=== PATIENT | female | born 1965 | race Hispanic/Latino ===

== ENCOUNTER 2017-11-30 23:46 | Emergency (ER) | payer BC ==
[~2017-11-30] VITALS: Ht 165.1 cm; Wt 99.3 kg
[~2017-11-30 23:46] MED LIST: GABAPENTIN300 MG PO; LOVAZA1 GM PO; MOBIC15 MG PO; PRAVASTATIN SOD20 MG PO; SINGULAIR10 MG PO; TRICOR48 MG PO; VENLAFAXINE HCL75 MG PO
[2017-12-01] MEDS ORDERED: ONDANSETRON HCL 4 MG ORAL DISINTEGRATING TAB PO ONE (01:15)
[2017-12-01] MEDS ORDERED: HYDROCODONE/APAP 5MG-325MG TAB PO ONE (01:45)
== END 2017-12-01 03:45 | disposition home or self-care (01) ==
LOC: ER 23:46
DX: H92.01 Otalgia, right ear (principal)
CPT/HCPCS: 99284

== ENCOUNTER 2018-02-19 20:10 | Emergency (ER) | payer BC ==
[~2018-02-19] VITALS: Ht 165.1 cm; Wt 99.3 kg
--- OUTSIDE RECORDS SUMMARY | 2018-02-19 20:13 | XMS REPORT | Clinical Summary ---
Author Author [facility] Address Unknown Phone Unavailable Care Team Providers Care Puppet Developer Name Role Phone Neva Arechiga MD PCP Allergies Comments Active Allergy Reactions Severity Noted Date Rifampin Hives 06/19/2013 Acetaminophen-Codeine Itching 06/19/2013 Medications End Date Status Medication Sig Dispensed Refills Start Date Active montelukast (SINGULAIR) Take 10 mg by 0 10 mg tablet mouth nightly. Active GABAPENTIN (NEURONTIN Take by mouth 0 ORAL) daily. Active albuterol HFA (VENTOLIN Inhale 1 puff 0 HFA) 90 mcg/actuation by mouth via inhaler inhaler every 6 (six) hours as needed for Wheezing (1-2 puffs). Active cholecalciferol (VITAMIN Take 1,000 0 D3) 1,000 unit tablet Units by mouth daily. Active cyclobenzaprine Take 10 mg by 0 (FLEXERIL) 10 MG tablet mouth 3 (three) times daily as needed for Muscle spasms. Active fluticasone-salmeterol Inhale 1 puff 0 (ADVAIR) 250-50 mcg/dose by mouth via diskus inhaler inhaler every 12 (twelve) hours. Active minocycline Take 100 mg 0 (MINOCIN,DYNACIN) 100 MG by mouth 2 capsule (two) times daily. Active mupirocin (BACTROBAN) 2 % by Nasal 0 nasal ointment route 2 (two) times daily Use one-half of tube in each nostril twice daily for five (5) days. After application, press sides of nose together and gently massage. . Active pravastatin (PRAVACHOL) Take 20 mg by 0 20 MG tablet mouth daily. Active SUMAtriptan (IMITREX) 50 Take 50 mg by 0 MG tablet mouth once as needed for Headaches. Active venlafaxine (EFFEXOR-XR) Take 75 mg by 0 75 MG 24 hr capsule mouth daily. Active valACYclovir (VALTREX) Take 500 mg 0 500 MG tablet by mouth. Active Problems Not on file Social History Date Tobacco Use Types Packs/Day Years Used Never Smoker Alcohol Use Drinks/Week oz/Week Comments Yes social Sex Assigned at Date Recorded Not on file Industry Job Start Date Occupation Not on file Not on file Not on file Travel End Travel History Travel Start No recent travel history available. Last Filed Vital Signs Not on file Plan of Treatment Not on file Results Not on fileafter 02/18/2017 Insurance Payer Benefit Subscriber ID Type Phone Address Plan / Group [facility] H[facility]/POS CARE POS [employer] CHO[employer] Zeenat costello (Home) [place] [address]
[2018-02-19] MEDS ORDERED: SODIUM CHLORIDE 0.9% 1000ML 1,000 ML IV STA (20:35)
[2018-02-19] MEDS ORDERED: KETOROLAC TROMETHAMINE 30 MG/ML VIAL IV NR (20:35)
[2018-02-19] MEDS ORDERED: ONDANSETRON HCL INJ 2 MG/ML VIAL IV NR (20:35)
[2018-02-19 20:48] LABS: BILIRUBIN,URINE NEGATIVE (NEGATIVE); CLARITY,URINE SL CLOUDY (CLEAR); COLOR,URINE STRAW (YELLOW); KETONES,URINE NEGATIVE (NEGATIVE); LEUKOCYTE ESTERASE ,URINE TRACE (NEGATIVE); NITRITE,URINE NEGATIVE (NEGATIVE); PROTEIN,URINE DIPSTICK 1+ (NEGATIVE); URINE UROBILINOGEN 0.2 mg/dL (0.2 - 1)
[2018-02-19] MEDS ORDERED: ONDANSETRON HCL 4 MG ORAL DISINTEGRATING TAB ONE (20:51)
[2018-02-19] MEDS ORDERED: KETOROLAC TROMETHAMINE 10 MG TAB ONE (20:51)
[2018-02-19] MEDS ORDERED: ONDANSETRON HCL 4 MG ORAL DISINTEGRATING TAB PO NR (21:00)
[2018-02-19] MEDS ORDERED: KETOROLAC TROMETHAMINE 10 MG TAB PO PRN (21:00)
[2018-02-19 21:01] LABS: AMORPHOUS SEDIMENT,URINE MODERATE (FEW); BACTERIA,URINE MODERATE /HPF; EPITHELIAL CELLS,URINE FEW /LPF; RBC,URINE 21-50 /HPF (0-5)
[2018-02-19 21:15] VITALS: BP 132/79
[2018-02-19] MEDS ORDERED: PYRIDIUM100 MG PO (21:23)
[2018-02-19] MEDS ORDERED: KEFLEX500 MG PO (21:23)
== END 2018-02-19 21:46 | disposition home or self-care (01) ==
LOC: ER 20:10
DX: R10.9 Unspecified abdominal pain (principal); M54.5 Low back pain; N30.91 Cystitis, unspecified with hematuria; F17.210 Nicotine dependence, cigarettes, uncomplicated
CPT/HCPCS: 81001; 87086; 99282; Q0162

== ENCOUNTER 2018-03-09 02:13 | Inpatient (IN) | payer BC, OTHER ==
[~2018-03-09] VITALS: Ht 165.1 cm; Wt 163.3 kg
[2018-03-09] VITALS (7 sets, daily range): BP systolic 91–114; BP diastolic 53–75
[~2018-03-09 02:13] MED LIST changes: +KEFLEX500 MG PO; +PYRIDIUM100 MG PO
--- OUTSIDE RECORDS SUMMARY | 2018-03-09 02:16 | XMS REPORT | Clinical Summary ---
Author Author [facility] Address Unknown Phone Unavailable Care Team Providers Care Mechanical Insulator Name Role Phone Neva Arechiga MD PCP [...] Not on file Results Not on fileafter 03/08/2017 Insurance Payer Benefit Subscriber ID Type Phone Address Plan / Group [facility] HMO/POS CARE POS [employer] Zeenat costello (Home) [place] [address]
[2018-03-09 03:10] LABS: BASOPHILS # (AUTO) 0.1 (0.0-0.1); BASOPHILS % 1.1 % (0.0-1.0); EOSINOPHILS # (AUTO) 0.3 (0.0-0.4); EOSINOPHILS % 2.4 % (0.0-6.0); HEMATOCRIT 48.4 % (34.2-44.1); HEMOGLOBIN 16.2 g/dL (12.0-16.0); LYMPHOCYTES # (AUTO) 4.4 (1.0-3.2); LYMPHOCYTES % 36.9 % (18.0-39.1); MEAN CORPUSCULAR HEMOGLOBIN 31.6 pg (28-32); MEAN CORPUSCULAR HGB CONC 33.5 g/dL (31-35); MEAN CORPUSCULAR VOLUME 94.3 fL (81-99); MONOCYTES # (AUTO) 1.1 (0.2-0.8); MONOCYTES % 9.5 % (4.4-11.3); NEUTROPHILS # (AUTO) 5.9 (2.1-6.9); NEUTROPHILS % 49.7 % (38.7-80.0); PLATELET COUNT 405 x10e3/uL (140-360); RED BLOOD COUNT 5.13 x10e6/uL (3.6-5.1)
[2018-03-09 03:22] LABS: MAGNESIUM 2.3 MG/DL (1.3-2.1)
[2018-03-09 03:23] LABS: ALANINE AMINOTRANSFERASE 44 IU/L (0-55); ALBUMIN 3.9 g/dL (3.5-5.0); ALKALINE PHOSPHATASE 87 IU/L (40-150); ANION GAP 16.9 mmol/L (8-16); BLOOD UREA NITROGEN 17 mg/dL (7-26); BUN/CREATININE RATIO 19 (6-25); CALCIUM 9.6 mg/dL (8.4-10.2); CARBON DIOXIDE 23 mmol/L (22-29); CHLORIDE 105 mmol/L (98-107); EST GLOMERULAR FILTRATION RATE > 60 ML/MIN (60-); GLUCOSE 90 mg/dL (74-118); POTASSIUM 3.9 mmol/L (3.5-5.1); SODIUM 141 mmol/L (136-145)
[2018-03-09 04:07] LABS: CLARITY,URINE CLOUDY (CLEAR); COLOR,URINE YELLOW (YELLOW); LEUKOCYTE ESTERASE ,URINE 2+ (NEGATIVE)
[2018-03-09 04:08] LABS: BILIRUBIN,URINE NEGATIVE (NEGATIVE); KETONES,URINE NEGATIVE (NEGATIVE); NITRITE,URINE NEGATIVE (NEGATIVE); PROTEIN,URINE DIPSTICK 1+ (NEGATIVE); URINE UROBILINOGEN 0.2 mg/dL (0.2 - 1)
[2018-03-09 04:13] LABS: BACTERIA,URINE MODERATE /HPF; EPITHELIAL CELLS,URINE FEW /LPF; MUCUS,URINE MODERATE (RARE); RBC,URINE >50 /HPF (0-5); RENAL EPITHELIAL CELLS,URINE FEW; TRANSITIONAL EPI CELLS,URINE FEW; WBC,URINE (MAN) >50 /HPF (0-5)
[2018-03-09] MEDS ORDERED: ONDANSETRON HCL INJ 2MG/ML 2ML 2 MG/ML VIAL IV STA (04:59)
[2018-03-09] MEDS ORDERED: ACETAMINOPHEN 325 MG TAB PO ONE (05:00)
[2018-03-09] MEDS ORDERED: KETOROLAC TROMETHAMINE 30 MG/ML VIAL IV PRN (05:00)
[2018-03-09] MEDS ORDERED: MEROPENEM 1GRAM 1 GM in SODIUM CHLORIDE 0.9% 100 ML 100 ML IV STA (05:48)
[2018-03-09] MEDS: SODIUM CHLORIDE 0.9% 1000ML 1,000 ML IV SCH ×3 (05:48→14:48)
[2018-03-09] MEDS ORDERED: MEROPENEM 1 GM VIAL ONE (06:03)
--- NOTE | 2018-03-09 06:07 | Diagnostic Imaging Report ---
EXAM: CT Abdomen and Pelvis WITHOUT contrast INDICATION: r/o kidney stone COMPARISON: None. TECHNIQUE: Abdomen and pelvis were scanned utilizing a multidetector helical scanner from the lung base to the pubic symphysis without administration of IV contrast. Absence of intravenous contrast decreases sensitivity for detection of focal lesions and vascular pathology. Coronal and sagittal reformations were obtained. Routine protocol was performed. IV CONTRAST: None ORAL CONTRAST: Water COMPLICATIONS: None RADIATION DOSE: Total DLP: 749.4 mGy*cm Estimated effective dose: (DLP x 0.015 x size factor) mSv Dose modulation, iterative reconstruction, and/or weight based adjustment of the mA/kV was utilized to reduce the radiation dose to as low as reasonably achievable. FINDINGS: LINES and TUBES: None. LOWER THORAX: Unremarkable HEPATOBILIARY: No focal hepatic lesions. No biliary ductal dilation. GALLBLADDER: No radio-opaque stones or sludge. No wall thickening. SPLEEN: No splenomegaly. PANCREAS: No focal masses or ductal dilatation. ADRENALS: No adrenal nodules KIDNEYS/URETERS: Mild right hydroureteronephrosis secondary to a 0.9 x 0.6 x 0.3 cm (SI x AP x TV) stone in the distal right ureter. No left hydronephrosis. No cystic or solid mass lesions. No additional stones. GI TRACT: No abnormal distention, wall thickening, or evidence of bowel obstruction. Appendix is normal. PELVIC ORGANS/BLADDER: No bladder stones. Hysterectomy. LYMPH NODES: No lymphadenopathy. VESSELS: Unremarkable. PERITONEUM / RETROPERITONEUM: No free air or fluid. BONES: Unremarkable. SOFT TISSUES: Unremarkable. IMPRESSION: Obstructing stone in the distal right ureter causing mild right hydroureteronephrosis. Signed by: DR. Jose Horner MD on 03/09/2018 6:03 AM
[2018-03-09] MEDS ORDERED: MEROPENEM 1GM 100 ML IV ONE (06:15)
[2018-03-09] MEDS ORDERED: ONDANSETRON HCL INJ 2MG/ML 2ML 2 MG/ML VIAL IV ONE (06:21)
[2018-03-09] MEDS ORDERED: SODIUM CHLORIDE 0.9% 100 ML ONE (06:25)
[2018-03-09] MEDS ORDERED: ONDANSETRON HCL INJ 2MG/ML 2ML 2 MG/ML VIAL IV PRN (06:45)
[2018-03-09] MEDS ORDERED: HYDROMORPHONE 1MG/1ML INJ IV PRN (06:45)
--- OUTSIDE RECORDS SUMMARY | 2018-03-09 06:55 | XMS REPORT | Clinical Summary ---
Author Author [facility] Address Unknown Phone Unavailable Care Team Providers Care Yarn Washer Name Role Phone Neva Arechiga MD PCP [...] ID Type Phone Address Plan / Group [facility] H[facility]/POS CARE POS [employer] CHO[employer] Zeenat costello (Home) [place] [address]
--- OUTSIDE RECORDS SUMMARY | 2018-03-09 06:55 | XMS REPORT ---
Author Author [facility] Address Unknown Phone Unavailable Care Team Providers Care Gunner Mate Name Role Phone Nikita PLASENCIA Unavailable Unavailable Problems This patient has no known problems. Allergies, Adverse Reactions, Alerts This patient has no known allergies or adverse reactions. Medications This patient has no known medications. Results Test Description Test Time Test Comments Text Results Atomic Results Result Comments CT ABDOMEN/PELVIS WO 2018-03-09 05:52:00 [place] [address] Patient Name: KESHAWN MOTLEY MR #: [id number] : 1965 Age/Sex: 52/F Req #: [id number] Adm Physician: Ordered by: JUSTYN PLASENCIA MD Report #: [id number] Location: ER Room/Bed: Procedure: [id number] CT/CT ABDOMEN/PELVIS WO Exam Date: Exam Time: REPORT STATUS: Signed EXAM: CT Abdomen and Pelvis WITHOUT contrast INDICATION: r/o ki dney stone COMPARISON: None. TECHNIQUE: Abdomen and pelvis were scanned utilizing a multidetector helical scanner from the lung base to the pubic symphysis without administration of IV contrast. Absence of intravenous contrast decreases sensitivity for detection of focal lesions and vascular pathology. Coronal and sagittal reformations were obtained. Routine protocol was performed. IV CONTRAST: None ORAL CONTRAST: Water COMPLICATIONS: None RADIATION DOSE: Total DLP: 749.4 mGy*cm Estimated effective dose: (DLP x 0.015 x size factor) mSv Dose modulation, iterative reconstruction, and/or weight based adjustment of the mA/kV was utilized to reduce the radiation dose to as low as reasonably achievable. FINDINGS: LINES and TUBES: None. LOWER THORAX: Unremarkable HEPATOBILIARY: No focal hepatic lesions. No biliary ductal dilation. GALLBLADDER: No radio-opaque stones or sludge. No wall thickening. SPLEEN: No splenomegaly. PANCREAS: No focal masses or ductal dilatation. ADRENALS: No adrenal nodules KIDNEYS/URETERS: Mild right hydroureteronephrosis secondary to a 0.9 x 0.6 x 0.3 cm (SI x AP x TV) stone in the distal right ureter. No left hydronephrosis. No cystic or solid mass lesions. No additional stones. GI TRACT: No abnormal distention, wall thickening, or evidence of bowel obstruction. Appendix is normal. PELVIC ORGANS/BLADDER: No bladder stones. Hysterectomy. LYMPH NODES: No lymphadenopathy. VESSELS: Unremarkable. PERITONEUM / RETROPERITONEUM: No free air or fluid. BONES: Unremarkable. SOFT TISSUES: Unremarkable. IMPRESSION: Obstructing stone in the distal right ureter causing mild right hydroureteronephrosis. Signed by: DR. Jose Greer MD on 03/09/2018 6:03 AM Dictated By: JOSE GREER MD 2 Transcribed By: MARIIA on 03/09/18602 COPY TO: JUSTYN PLASENCIA MD
[2018-03-09] MEDS ORDERED: HYDROMORPHONE 2MG/ML 2 MG/ML ML IV PRN (07:00)
--- NOTE | 2018-03-09 07:09 | NUR ---
REPORT GIVEN TO LISA FRANCIS DAY SHIFT NURSE.
--- NOTE | 2018-03-09 07:20 | NUR ---
Dr. Raymond at bedside. Orders rec'd.
[2018-03-09] MEDS ORDERED: PROAIR HFA INH8.5 GM IH (10:26)
--- OUTSIDE RECORDS SUMMARY | 2018-03-09 11:28 | XMS REPORT | Clinical Summary ---
Author Author [facility] Address Unknown Phone Unavailable Care Team Providers Care Apple Picking Supervisor Name Role Phone Neva Arechiga MD PCP [...] Phone Address Plan / Group [facility] x[facility] HMO/POS CARE POS [employer] Zeenat costello (Home) [place] [address]
--- NOTE | 2018-03-09 11:31 | NUR ---
Pt to OR holding at this time for procedure in stable condition; NAD observed or voiced.
[2018-03-09] MEDS ORDERED: IOPAMIDOL 610MG/1ML 300 MG/ML VIAL IV ONE (11:48)
[2018-03-09] MEDS ORDERED: LEVOFLOXACIN 500MG/D5W 100ML 100 ML IV ONE (12:02)
[2018-03-09] MEDS ORDERED: DEXAMETHASONE SOD PHOS INJ 4 MG/ML VIAL ONE (12:06)
[2018-03-09] MEDS ORDERED: LIDOCAINE HCL 2% LOCAL INJ 5 ML SDV VIAL INJ ONE (12:06)
[2018-03-09] MEDS ORDERED: PROPOFOL IV EMULSION 10 MG/ML 20 ML VIAL ONE (12:06)
[2018-03-09] MEDS ORDERED: EPHEDRINE SULFATE INJ 50 MG/10 ML SYR ONE (12:06)
[2018-03-09] MEDS ORDERED: ONDANSETRON HCL INJ 2MG/ML 2ML 2 MG/ML VIAL ONE (12:06)
[2018-03-09] MEDS ORDERED: SEVOFLURANE INHAL SOLN 250 ML PEN BTL ONE (12:06)
[2018-03-09] MEDS ORDERED: KETOROLAC TROMETHAMINE 30 MG/ML VIAL ONE (13:31)
--- NOTE | 2018-03-09 13:45 | NUR ---
Received patient from PACU via stretcher. AAOX4 to time, person,place , situation. Respirations even and unlabored. Oriented patient to room. Instructed patient to use call light for assistance. Voiced understanding.
[2018-03-09] MEDS ORDERED: MEROPENEM 1GRAM 1 GM in SODIUM CHLORIDE 0.9% 100 ML 100 ML IV SCH (14:00)
[2018-03-09] MEDS: MEROPENEM 1GM 100 ML IV SCH ×2 (14:00→23:28)
--- OUTSIDE RECORDS SUMMARY | 2018-03-09 14:16 | XMS REPORT | Clinical Summary ---
Author Author [facility] Address Unknown Phone Unavailable Care Team Providers Care Roller Varnisher Name Role Phone Neva Arechiga MD PCP [...] ID Type Phone Address Plan / Group [facility] HMO/POS CARE POS [employer] CHO[employer] Zeenat costello (Home) [place] [address]
--- NOTE | 2018-03-09 14:22 | Operative Report ---
DATE OF PROCEDURE: March 09, 2018 PREOPERATIVE DIAGNOSES 1. Right hydronephrosis. 2. Microscopic hematuria. POSTOPERATIVE DIAGNOSES 1. Right hydronephrosis. 2. Microscopic hematuria. OPERATIONS PERFORMED 1. Cystourethroscopy with left ureteral catheterization and left retrograde pyelogram (a separate procedure for the diagnosis of microscopic hematuria). 2. Cystourethroscopy with the insertion of a right indwelling ureteral stent (entirely separate procedure for the diagnosis of right hydronephrosis). 3. Supervision of fluoroscopy. 4. Interpretation of retrograde pyelography. ANESTHESIA: General. ESTIMATED BLOOD LOSS: Minimal. COMPLICATIONS: None. INDICATIONS FOR PROCEDURE: Mrs. Contreras is a very pleasant 52-year-old female with a urinary tract infection and obstructive and infected stone. She and I had a long discussion regarding the alternatives, risks and benefits including doing nothing, cystoscopy, IVP, stent placement and percutaneous nephrostomy. She voiced understanding of the options, of the alternatives, of the risks and the benefits, and she elected to proceed. PROCEDURE IN DETAIL: After informed consent was obtained, the patient was taken to the operating suite. She was placed supine on the operating table and she underwent general anesthesia by the anesthesia service. She was placed in the dorsal lithotomy position and sterilely prepped and draped in the standard fashion for cystoscopy. A 22.5-Thai cystoscope was inserted per urethra, and a normal urethra was noted. Panendoscopy of the bladder revealed no tumors and no stones. Both ureteral orifices were in their normal anatomical location and position and were seen to efflux clear urine. Bilateral retrograde pyelograms were performed. The left was normal. The right revealed a very large 9 x 6 mm midureteral calculus with proximal hydronephrosis. A ureteral stent was deployed with a coil in the renal pelvis and a coil in the bladder. The patient's bladder was drained, awakened from anesthesia and transported to the recovery room in excellent condition. SUPERVISION OF FLUOROSCOPY AND INTERPRETATION OF RETROGRADE PYELOGRAPHY: I was present throughout the entire procedure, and I supervised the use of fluoroscopy. There was no radiologist present at any time during this procedure. Attention was turned toward the left and right ureteral orifices, which were catheterized with a 5-Thai open-ended catheter. Retrograde pyelogram was performed, revealing delicate ureters, delicate pelvocaliceal systems, a left hydronephrosis and a 9 x 6 mm midureteral calculus on the right. Postoperative views on the right side revealed a stent in adequate position. IMPRESSION 1. Normal left retrograde pyelogram. 2. Right midureteral 9 x 6 mm calculus with hydronephrosis, stent in adequate position. Job#: [id number] EV
--- NOTE | 2018-03-09 14:25 | Consultation ---
DATE OF CONSULTATION: March 09, 2018 UROLOGICAL CONSULTATION REASON FOR CONSULTATION: Kidney stone. HISTORY OF PRESENT ILLNESS: Ms. Contreras is a very pleasant 52-year-old female with a 2-week history of sharp severe right-sided flank pain. She was diagnosed with a urinary tract infection by her primary care doctor and treated with Keflex. She denied fevers. No chills. Currently, has had nausea. Denied vomiting. PAST MEDICAL HISTORY: Notable for hyperlipidemia, hidradenitis suppurativa, urinary tract infections. MEDICATIONS: Please see MAR. ALLERGIES: RIFAMPIN, ACETAMINOPHEN, CODEINE, AND NOW see nurses note. SOCIAL HISTORY: Noncontributory. FAMILY HISTORY: No urological symptoms or malignancies. REVIEW OF SYSTEMS: Noncontributory x 12. PHYSICAL EXAMINATION GENERAL: A well-developed, well-nourished female in no acute distress. VITALS: Temperature 99, pulse 95, respirations 16, weight 219 pounds, height 5 feet 5 inches. HEENT: Sclerae are anicteric. NECK: Supple. BACK: Without costovertebral tenderness. ABDOMEN: Soft. It is nontender. It is nondistended. There is no palpable mass. No palpable hernias. No palpable lymphadenopathy. : No female external genitalia. EXTREMITIES: Without edema. PSYCH: Alert and appropriate. SKIN: Intact. Normal color. PERTINENT LABORATORY DATA: Sodium 141, potassium 3.9, chloride 105, bicarb 23, BUN 17, creatinine 0.9, glucose 90. Hemoglobin 16, hematocrit 48, white blood cell count 4500 and went up to 11,900. Urinalysis with greater then 50 reds and greater then 50 whites. IMPRESSION 1. Right ureteral calculus. 2. Right hydronephrosis. 3. Right renal colic. 4. Pyelonephritis. 5. Urinary tract infection. 6. Microscopic hematuria. PLAN: Patient is on broad-spectrum antibiotics. Will need stenting versus nephrostomy. Thank you for allowing us to participate in the care of this patient. I will be happy to follow along with you. Job#: [id number] RI MTDD
[2018-03-09] MEDS ORDERED: SODIUM CHLORIDE 0.9% 1000ML 1,000 ML ONE (14:40)
[2018-03-09] MEDS: VENLAFAXINE HCL 75 MG TAB PO SCH (17:32)
--- NOTE | 2018-03-09 18:30 | NUR ---
Patient voided. Per patient "I noticed some blood in my urine"
[2018-03-09] MEDS ORDERED: MIDAZOLAM HCL 2 MG/2 ML VIAL ONE (18:36)
[2018-03-09] MEDS ORDERED: FENTANYL CITRATE/PF 100MCG/2 ML INJ ONE (18:36)
[2018-03-09] MEDS: HYDROMORPHONE 2MG/ML 2 MG/ML ML IV PRN (18:50)
--- NOTE | 2018-03-09 19:00 | NUR ---
Report given to oncoming nurse of patient's status. No s/s of acute distress noted.
--- NOTE | 2018-03-09 19:14 | NUR ---
report received and walking rounds complete.
[2018-03-09] MEDS: GABAPENTIN 300 MG CAP PO SCH (22:08)
[2018-03-09] MEDS: PRAVASTATIN 20 MG TAB PO SCH (22:08)
[2018-03-09] MEDS ORDERED: MEROPENEM 500MG/ NS 50ML 100 ML IV SCH (23:30)
[2018-03-10] VITALS (8 sets, daily range): BP systolic 99–120; BP diastolic 53–66
[2018-03-10] MEDS ORDERED: SODIUM CHLORIDE 0.9% 1000ML 1,000 ML ONE ×3 (00:21→23:38)
[2018-03-10] MEDS: SODIUM CHLORIDE 0.9% 1000ML 1,000 ML IV SCH ×5 (00:30→23:41)
[2018-03-10] MEDS: HYDROMORPHONE 2MG/ML 2 MG/ML ML IV PRN ×2 (00:30→05:08)
[2018-03-10 05:50] LABS: BASOPHILS % 0.4 % (0.0-1.0); EOSINOPHILS % 0.2 % (0.0-6.0); HEMATOCRIT 38.2 % (34.2-44.1); LYMPHOCYTES # (AUTO) 2.1 (1.0-3.2); LYMPHOCYTES % 19.2 % (18.0-39.1); MEAN CORPUSCULAR HEMOGLOBIN 31.6 pg (28-32); MEAN CORPUSCULAR HGB CONC 32.5 g/dL (31-35); MEAN CORPUSCULAR VOLUME 97.4 fL (81-99); MONOCYTES # (AUTO) 0.8 (0.2-0.8); MONOCYTES % 6.9 % (4.4-11.3); NEUTROPHILS # (AUTO) 8.1 (2.1-6.9); NEUTROPHILS % 72.8 % (38.7-80.0); PLATELET COUNT 294 x10e3/uL (140-360); RED BLOOD COUNT 3.92 x10e6/uL (3.6-5.1); RED CELL DISTRIBUTION WIDTH 13.1 % (11.7-14.4)
[2018-03-10] MEDS: MEROPENEM 1GM 100 ML IV SCH ×3 (06:05→22:00)
[2018-03-10 06:20] LABS: HEMOGLOBIN 12.4 g/dL (12.0-16.0)
[2018-03-10 06:22] LABS: ANION GAP 11.3 mmol/L (8-16); BLOOD UREA NITROGEN 14 mg/dL (7-26); BUN/CREATININE RATIO 18 (6-25); CALCIUM 8.5 mg/dL (8.4-10.2); CARBON DIOXIDE 25 mmol/L (22-29); CHLORIDE 111 mmol/L (98-107); CREATININE, SERUM 0.77 mg/dL (0.57-1.11); EST GLOMERULAR FILTRATION RATE > 60 ML/MIN (60-); GLUCOSE 112 mg/dL (74-118); POTASSIUM 4.3 mmol/L (3.5-5.1); SODIUM 143 mmol/L (136-145)
--- NOTE | 2018-03-10 06:50 | NUR ---
Handoff report rec'd during walking rounds.
--- NOTE | 2018-03-10 08:20 | NUR ---
Dr. Mcpherson rounding at this time for Dr. Raymond.
[2018-03-10] MEDS ORDERED: MELOXICAM 15 MG PO SCH (09:00)
[2018-03-10] MEDS ORDERED: PRAVASTATIN 20 MG TAB PO SCH (09:00)
--- NOTE | 2018-03-10 09:00 | NUR ---
SOCIAL WORK INITIAL ASSESSMENT Civil Engineering Draftsperson to bedside to discuss plan of care with patient/family. CM/SW role and care transitions discussed. Anticipated discharge plan discussed along with duration of care. CM/SW discussed patients right to make decisions in care. CM/SW work hours given. Patient lives: IN OWN HOUSE WITH FAMILY Admit/Transfer: VIA HOME POA/Emergency contact: IS MARGARITA [phone] AND SON IS SANCHEZ [phone] Current/Previous Home Health: NONE PCP/Follow-up Care: [facility] Current/Previous DME: NONE Other Services: NONE Employment Status: CURRENTLY UNEMPLOYED Areas of Concerns: NONE Referral Needs: NONE Education Needs: NONE IMM/HARRISON given and signed (if applicable): NA Goal for discharge: RETURN HOME INDEPENDENTLY CM/SW left business card at the bedside with contact information. Name and number was also written on the patients whiteboard. Patient verbalized understanding of discussion. CM will follow-up with ongoing discharge and transition of care needs.
[2018-03-10] MEDS: MELOXICAM 7.5 MG TAB PO SCH (09:30)
[2018-03-10] MEDS: GABAPENTIN 300 MG CAP PO SCH ×3 (09:30→20:33)
[2018-03-10] MEDS: FLUCONAZOLE 100 MG TAB PO SCH (09:30)
[2018-03-10] MEDS: VENLAFAXINE HCL 75 MG TAB PO SCH ×2 (09:30→17:19)
--- NOTE | 2018-03-10 10:23 | NUR ---
Rounds with Dr. Evan Hutchinson.
--- NOTE | 2018-03-10 13:20 | NUR ---
Visit made by the Spiritual Care Department Pastoral Visitor, Lorelei Luna. Pt sleeping soundly and no family present. Pastoral Visitor left a card describing availability of production team manager and instructions on how to contact a production team manager. STEPHAN[employer] Power Barker Operator Spiritual Care Department O: [phone] Pager: [phone] ([phone] number calling from)
--- NOTE | 2018-03-10 19:20 | NUR ---
Patient received lying in bed. AAO x 3. Patient had no complaints of pain. No signs of respiratory distress. Bed locked and in lowest position. Bed rails up x 2. Patient instructed to call for assistance when needed. Call light within reach.
--- NOTE | 2018-03-10 20:30 | NUR ---
Pharmacy Dept. notified twice of non-availability of Merrem 1g and NS 1000cc in the Pyxis, even though the medications were listed in the eMAR. Pharmacist assured nurse it would be taken care of.
[2018-03-10] MEDS: PRAVASTATIN 20 MG TAB PO SCH (20:33)
[2018-03-11 04:00] VITALS: BP 121/75
[2018-03-11 05:19] LABS: BASOPHILS # (AUTO) 0.1 (0.0-0.1); BASOPHILS % 1.1 % (0.0-1.0); EOSINOPHILS # (AUTO) 0.2 (0.0-0.4); EOSINOPHILS % 2.5 % (0.0-6.0); HEMATOCRIT 40.8 % (34.2-44.1); HEMOGLOBIN 13.3 g/dL (12.0-16.0); LYMPHOCYTES # (AUTO) 4.5 (1.0-3.2); LYMPHOCYTES % 52.1 % (18.0-39.1); MEAN CORPUSCULAR HEMOGLOBIN 31.6 pg (28-32); MEAN CORPUSCULAR HGB CONC 32.6 g/dL (31-35); MEAN CORPUSCULAR VOLUME 96.9 fL (81-99); MONOCYTES # (AUTO) 0.7 (0.2-0.8); MONOCYTES % 7.6 % (4.4-11.3); NEUTROPHILS # (AUTO) 3.1 (2.1-6.9); NEUTROPHILS % 36.1 % (38.7-80.0); PLATELET COUNT 272 x10e3/uL (140-360); RED BLOOD COUNT 4.21 x10e6/uL (3.6-5.1); RED CELL DISTRIBUTION WIDTH 13.2 % (11.7-14.4)
[2018-03-11 05:51] LABS: ANION GAP 9.8 mmol/L (8-16); BLOOD UREA NITROGEN 11 mg/dL (7-26); BUN/CREATININE RATIO 14 (6-25); CALCIUM 8.4 mg/dL (8.4-10.2); CARBON DIOXIDE 27 mmol/L (22-29); CHLORIDE 108 mmol/L (98-107); CREATININE, SERUM 0.79 mg/dL (0.57-1.11); EST GLOMERULAR FILTRATION RATE > 60 ML/MIN (60-); GLUCOSE 85 mg/dL (74-118); POTASSIUM 3.8 mmol/L (3.5-5.1); SODIUM 141 mmol/L (136-145)
[2018-03-11] MEDS: HYDROMORPHONE 2MG/ML 2 MG/ML ML IV PRN (06:34)
--- NOTE | 2018-03-11 07:09 | NUR ---
Shift report given to oncoming nurse. Patient in stable condition.
[2018-03-11 07:43] VITALS: BP 110/61
[2018-03-11 09:00] VITALS: BP 110/61
[2018-03-11] MEDS: MELOXICAM 7.5 MG TAB PO SCH (10:24)
[2018-03-11] MEDS: GABAPENTIN 300 MG CAP PO SCH ×2 (10:24→15:53)
[2018-03-11] MEDS: VENLAFAXINE HCL 75 MG TAB PO SCH ×2 (10:24→15:53)
[2018-03-11] MEDS: FLUCONAZOLE 100 MG TAB PO SCH (10:25)
[2018-03-11] MEDS: SODIUM CHLORIDE 0.9% 1000ML 1,000 ML IV SCH ×2 (10:34→14:02)
[2018-03-11] MEDS: MEROPENEM 1GM 100 ML IV SCH (10:34)
[2018-03-11 11:31] VITALS: BP 104/61
--- NOTE | 2018-03-11 14:07 | NUR ---
pt resting in bed. MD aware of vs
[2018-03-11 15:36] VITALS: BP 96/53
[2018-03-11] MEDS ORDERED: MEROPENEM 1GM 100 ML IV SCH (18:00)
--- NOTE | 2018-03-11 19:16 | NUR ---
REVIEWED DC INSTRUCTIONS WITH PT, DC WITH RX FOR ABX AND PAIN. PT AND SPOUSE VERBALIZED UNDERSTANDING.
[2018-03-19] MEDS ORDERED: CIPRO PO (08:53)
[2018-03-20] MEDS ORDERED: ULTRAM50 MG PO (07:29)
== END 2018-03-11 19:25 | disposition home or self-care (01) | DRG 661 ==
LOC: ER 02:13 → UNDOADMIN 06:52 → ERHOLD 06:52 → OR 11:25 → PACU V 14:00 → IMCU 14:16
PROC: BT1F1ZZ Fluoroscopy of Left Kidney, Ureter and Bladder using Low Osmolar Contrast (ICD-10-PCS; 2018-03-09)
PROC: 0T768DZ Dilation of Right Ureter with Intraluminal Device, Via Natural or Artificial Opening Endoscopic (ICD-10-PCS; principal; 2018-03-09 07:30)
DX: N13.6 Pyonephrosis (principal); E78.5 Hyperlipidemia, unspecified; L73.2 Hidradenitis suppurativa; K76.0 Fatty (change of) liver, not elsewhere classified; J45.909 Unspecified asthma, uncomplicated; Z88.6 Allergy status to analgesic agent; Z88.5 Allergy status to narcotic agent; Z88.8 Allergy status to other drugs, medicaments and biological substances; R31.29 Other microscopic hematuria; E66.3 Overweight
CPT/HCPCS: 36415; 74176; 74420; 80048; 80053; 81001; 82150; 83690; 83735; 85025; 87086; 96360; 96361; 99284; C2617; J1100; J1885; J1956; J2001; J2185; J2250; J2405; J7030; J7050

== ENCOUNTER → 2018-03-20 | Day surgery (SDC) | payer BC ==
[~2018-03-20] MED LIST changes: +CEFTRIAXONE SOD 1 GM/NS 50 ML 50 ML IV ONE; +CIPRO PO; +DEXAMETHASONE SOD PHOS INJ 4 MG/ML VIAL ONE; +DIPHENHYDRAMINE HCL INJ 50 MG/ML VIAL ONE; +FENTANYL CITRATE/PF 100MCG/2 ML INJ ONE; +IOPAMIDOL 610MG/1ML 300 MG/ML VIAL IV ONE; +LIDOCAINE HCL 2% LOCAL INJ 5 ML SDV VIAL INJ ONE; +MIDAZOLAM HCL 2 MG/2 ML VIAL ONE; +MORPHINE SULFATE INJ 4 MG/ML INJ 1ML ONE; +ONDANSETRON HCL INJ 2MG/ML 2ML 2 MG/ML VIAL ONE; +PROAIR HFA INH8.5 GM IH; +PROPOFOL IV EMULSION 10 MG/ML 20 ML VIAL ONE; +ROCURONIUM BROMIDE 10 MG/ML 5ML VIAL ONE; +SEVOFLURANE INHAL SOLN 250 ML PEN BTL ONE; +ULTRAM50 MG PO
--- OUTSIDE RECORDS SUMMARY | 2018-03-20 06:59 | XMS REPORT | Clinical Summary ---
Author Author [facility] Address Unknown Phone Unavailable Care Team Providers Care Software Application Tester Name Role Phone Neva Arechiga MD PCP [...] Not on file Results Not on fileafter 03/19/2017 Insurance Payer Benefit Subscriber ID Type Phone Address Plan / Group [facility] xxxxxxxxx HMO/POS CARE POS [employer] Zeenat costello (Home) [place] [address]
[2018-03-20 10:15] VITALS: BP 106/73
--- NOTE | 2018-03-21 23:06 | Operative Report ---
DATE OF PROCEDURE: March 21, 2018 PREOPERATIVE DIAGNOSES 1. Indwelling right ureteral stent. 2. Right ureteral calculus. POSTOPERATIVE DIAGNOSES 1. Indwelling right ureteral stent. 2. Right ureteral calculus. PROCEDURES 1. Cystourethroscopy with complicated removal of right indwelling stent (entirely separate procedure complicated secondary to encrustation). 2. Right-sided ureteroscopy with laser lithotripsy (entirely separate procedure for diagnosis of obstructing calculi). 3. Right-sided ureteroscopy with stone extraction (entirely separate procedure for ureteral calculus). 4. Supervision of fluoroscopy. 5. Interpretation of retrograde pyelography. ANESTHESIA: General. ESTIMATED BLOOD LOSS: Minimal. COMPLICATIONS: None. INDICATIONS: Ms. Contreras is a very pleasant 53-year-old female with a previous stent. She and I had a long discussion regarding the alternatives, risks, and benefits including doing nothing, shockwave lithotripsy, ureteroscopy, and percutaneous surgery and open surgery. She voiced understanding of the options and alternatives, the risks and benefits, and she elected to proceed. PROCEDURE IN DETAIL: After informed consent was obtained, the patient was taken to the operative suite. She was placed on the operating table. She underwent general anesthesia by the anesthesia services. She was placed in the dorsal lithotomy position and sterilely prepped and draped for cystoscopy. A 22.5-Mongolian cystoscope was inserted per urethra. A normal urethra was noted. Panendoscopy of the bladder revealed no tumors and no stones. Both ureteral orifices were in their normal anatomic location and position and were seen to efflux clear urine. A stent was seen guidewire was inserted alongside the stent. Ureteroscope was advanced to the level of ascending ureteral calculi after the stent was removed intact. Utilizing 365-micron laser fiber, the stone was obliterated into multiple fragments. Several fragments were basket extracted and passed off the field as specimen. The ureteroscope was advanced to the proximal ureter. Retrograde pyelogram was performed with the ureteroscope no other stones. At this time, prompt drainage from the collecting system under fluoroscopy. A guidewire was removed. The bladder was drained. The patient was awakened from anesthesia and transported to the recovery room in excellent condition with no untoward effects noted. SUPERVISION OF FLUOROSCOPY, INTERPRETATION OF RETROGRADE PYELOGRAPHY: I was present throughout the entire procedure and I supervised the use of fluoroscopy as there was no radiologist present at any time of this procedure. I supervised both ureteroscopic portion as well as the stent removal portion. Retrograde pyelogram was performed through ureteroscope revealing a dilated collecting system and interim removal of ureteral calculi and stent. Job#: [id number] RTY
== END | disposition home or self-care (01) ==
LOC: OR 06:58
PROVIDERS: ATTEND Urology
DX: N20.1 Calculus of ureter (principal); Z46.6 Encounter for fitting and adjustment of urinary device; N39.0 Urinary tract infection, site not specified; J45.909 Unspecified asthma, uncomplicated; Z88.6 Allergy status to analgesic agent; Z88.1 Allergy status to other antibiotic agents; Z01.810 Encounter for preprocedural cardiovascular examination; Z68.36 Body mass index [BMI] 36.0-36.9, adult
CPT/HCPCS: 52353; 74420; 88300; 93005; C1758; J0696; J1100; J1200; J2001; J2250; J2270; J2405; J2704; Q9967